=== PATIENT | female | born 1985 | race Two or more races ===

== ENCOUNTER 2024-12-17 08:35 | Emergency (ER) | payer MEDICAID, SELFPAY ==
[2024-12-17 08:36] VITALS: BMI 29.2
[2024-12-17 09:32] VITALS: BP 135/92; PULSE 57; RESP 16; TEMP 36.8; O2SAT 100
--- NOTE | 2024-12-17 09:44 | XR_ITS ---
Examination: Sacrum and coccyx 3 views TECHNIQUE: AP inclined AP lateral sacrum and coccyx 3 views Exam date and time: December 17, 2024 1020 hours INDICATIONS: Sacral pain 3 days. FINDINGS: Mild sacroiliitis Symmetrical sacral foramina Satisfactory alignment sacral and coccygeal segments, no fracture IMPRESSION: Mild sacroiliitis
--- NOTE | 2024-12-17 09:44 | XR_ITS ---
Examination: Lumbar spine 3 views Technique one AP lateral coned lateral lower lumbar spine 3 views Exam date and time: December 17, 2024 1026 hours INDICATIONS: Onset lower back pain beginning 3 days ago. FINDINGS: Adequate alignment lumbar vertebral bodies No lumbar fracture Moderate disc narrowing L5-S1 No spondylolisthesis IMPRESSION: Moderate disc narrowing L5-S1
--- NOTE | 2024-12-17 09:51 | EDNOTE_ITS ---
ED Back Injury Pain RME/HPI General Chief Complaint: Back Pain/Injury Stated Complaint: LOWER BACK PAIN S/P SCIATIC NERVE PAIN Time Seen by Provider: 12/17/24 08:51 Source: patient Arrival date/time: 12/17/24 08:35 Mode of arrival: ambulatory Limitations: no limitations RME / HPI RME / HPI Narrative: 39 year old female presents to the ED for complaint of lower lumbar back pain beginning 1 week ago and worsening in the last 3 days. Described as aching in sensation that radiates down to the right glute and leg. Has taken 800mg Ibuprofen at home with no relief. Mentioned she had experienced similar back pain 4 years ago and told it was due to sciatica, no issues with back since. Denies any new injuries, fevers, chills, or dysuria. No other associated symptom s or complaints reported. Related Data Previous Rx's ?Medication ?Instructions ?Recorded ibuprofen 600 mg tablet 600 mg PO TID PRN pain #20 t abs 05/13/18 cephalexin 750 mg capsule (Keflex) 750 mg PO BID #10 c aps 06/22/21 cyclobenzaprine 10 mg tablet 10 mg PO HS #14 tabs 12/01 03/26 prednisone 50 mg tablet 50 mg PO QDAY 5 days #5 tabs 12/17/24 Allergies Allergy/AdvReac Type Severity Reaction Status Date / Time No Known Allergies Allergy Verified 12/17/24 08:40 Review of Systems Review of Systems Systems Reviewed: All systems reviewed, normal except as documented Narrative Review of Systems: Gen: No fever, no chills, no weight loss EYES: No discharge, no visual changes, no pain HEENT: No ear pain, no congestion, no sore throat PULM: No shortness of breath, no cough, no congestion CV: No chest pain, no dyspnea on exertion, no palpitations GI: No nausea, no vomiting, no diarrhea, no pain, no constipation : No frequency, no urgency,? no dysuria Musc/skel: +back pain that radiates down rigth glute and leg Skin: No rash? Psyc: No hallucinations, no depression Heme/Lymph: No easy bleeding or bruising tendencies Neuro: No weakness, no headache Past Medical History Past Medical History CARDIAC: Negative Congestive Heart Failure RESPIRATORY: Negative Chronic Obstructive Pulmonary Disease (COPD) GENITOURINARY: Negative Renal Disease ENDOCRINE: Negative Diabetes Mellitus Type 1 or Diabetes Mellitus Type 2 Social History SMOKING STATUS: Never smoker ED Exam General Limitations: Present no limitations General appearance: Present alert and in no apparent distress Head Head exam: Present atraumatic, normocephalic and normal inspection Eye Eye exam: Present normal appearance, PERRL and EOMI ENT ENT exam: Present normal exam, normal oropharynx and mucous membranes moist Neck Neck exam: Present normal inspection, full ROM and trachea midline Chest Chest inspection: Present normal inspection and symmetric chest wall rise Respiratory Respiratory exam: Present normal lung sounds bilaterally Cardiovascular Cardiovascular exam: Present regular rate, normal rhythm and normal heart sounds Abdominal Exam Abdominal exam: Present soft and normal bowel sounds Extremities Exam Extremities exam: Present normal inspection and full ROM Back Exam Back exam: Present full ROM and other (lower lumbar mid back tenderness to palpation) Neurological Exam Neurological exam: Present alert, oriented X3 and CN II-XII intact Psychiatric Psychiatric exam: Present normal affect and normal mood Skin Skin exam: Present warm, dry, intact and normal color Course Quality Measures none Orders Category Date Time Status XR lumbar spine 2-3V Stat Exams 12/17/24 09:44 Completed XR sacrum coccyx min 2V Stat Exams 12/17/24 09:44 Completed HCG Qualitative,Urine Stat Lab 12/17/24 09:58 Completed Urinalysis Stat Lab 12/17/24 09:58 Completed CYCLObenzaPRINE [Flexeril] Med 12/17/24 09:44 Discontinued 5 mg PO X1 ONE HYDROcodone*/APAP 5/325 [[place] 5/325] Med 12/17/24 09:44 Discontinued 1 tab PO X1 ONE Ketorolac Inj [Toradol Inj] Med 12/17/24 12:46 Discontinued 60 mg IM X1 ONE Lidocaine 5% Patch Med 12/17/24 09:44 Discontinued 1 patch TOP X1 ONE Vital Signs Vital signs: Vital Signs Temperature 98.2 F 12/17/24 09:32 Pulse Rate 57 L 12/17/24 09:32 Respiratory Rate 16 12/17/24 09:32 Blood Pressure 135/92 H 12/17/24 09:32 Pulse Oximetry (%) 100 12/17/24 09:32 Oxygen Delivery Method Room Air 12/17/24 09:32 Pulse ox is 100% on room air which is adequate. Back Pain / Injury MDM Narrative MDM Narrative:: Lindsey Saleem am scribing for and in the presence of ART HISTORY PROFESSOR Vicki Muir. 39-year-old female presenting with lower lumbar back pain no reports of fever, chills rigors. No history of IV drug use. Vital signs stable. X-ray does demonstrate degenerative disease and sacroiliitis. Pain medication given in ER improving the patient's pain. Patient did report history of similar pain 4 years ago and never followed up with her PCP for further imaging. Strictly advised she will need to follow-up to continue her care for imaging even physical therapy. Patient agrees with plan. Strict ER precautions given Patient data External records reviewed:: [facility] previous records (I reviewed ED visit on 06/22/2021 ) Clinical information provided by:: patient Social determinants that could affect healthcare access:: none Patient has the following chronic illnesses:: Sciatic pain 4 years ago How is presenting disease/condition affected by chronic disease/condition?: exacerbated by Evaluation data The following diagnostics were reviewed and interpreted by me:: lab results and radiology exam(s) Lab and/or radiology exams considered but not ordered:: None Interpretation Summary: Ordering Physician: [facility] Butler Date of Service: 12/17/24 Procedure(s): XR lumbar spine 2-3V Accession Number(s): [id number] cc: Jonathan Rice MD; Perez Contreras MD; Isadora HartmannSI[facility]ITALVicki Butler~ Examination: Lumbar spine 3 views Technique one AP lateral coned lateral lower lumbar spine 3 views Exam date and time: December 17, 2024 1026 hours INDICATIONS: Onset lower back pain beginning 3 days ago. FINDINGS: Adequate alignment lumbar vertebral bodies No lumbar fracture Moderate disc narrowing L5-S1 No spondylolisthesis IMPRESSION: Moderate disc narrowing L5-S1 Dictated By: Perez Contreras MD Signed By: <Electronically signed by Perez Contreras MD in OV> 12/17/24 1120 ====== Ordering Physician: Isad[facility] HartmannSI[facility]ITAL[facility]icki Butler Date of Service: 12/17/24 Procedure(s): XR sacrum coccyx min 2V Accession Number(s): [id number] cc: Jonathan Rice MD; Perez Contreras MD; Isadora HartmannSI[facility]PITALVicki Butler~ Examination: Sacrum and coccyx 3 views TECHNIQUE: AP inclined AP lateral sacrum and coccyx 3 views Exam date and time: December 17, 2024 1020 hours INDICATIONS: Sacral pain 3 days. FINDINGS: Mild sacroiliitis Symmetrical sacral foramina Satisfactory alignment sacral and coccygeal segments, no fracture IMPRESSION: Mild sacroiliitis Dictated By: Perez Contreras MD Signed By: <Electronically signed by Perez Contreras MD in OV> 12/17/24 1120 Medications / Prescriptions Medications or Prescriptions considered but not ordered:: None Medication administrations:: Medication Administration History Discontinued Medications Hydrocodone Bitart/Acetaminophen (Hydrocodone/Apap 5/325 Tablet) 1 tab PO X1 ONE Stop: 12/17/24 09:45 Last Admin: 12/17/24 09:53 Dose: 1 tab Documented By: VG Cyclobenzaprine HCl (Cyclobenzaprine 5 Mg Tablet) 5 mg PO X1 ONE Stop: 12/17/24 09:45 Last Admin: 12/17/24 09:53 Dose: 5 mg Documented By: VG Ketorolac Tromethamine (Ketorolac Inj 60 Mg/2 Ml Vial) 60 mg IM X1 ONE Stop: 12/17/24 12:47 Last Admin: 12/17/24 13:21 Dose: 60 mg Documented By: OA Lidocaine (Lidocaine 5% 1 Patch) 1 patch TOP X1 ONE Stop: 12/17/24 09:45 Last Admin: 12/17/24 09:54 Dose: 1 patch Documented By: VG See above Consultations Consultation(s) initiated? (list below): No Diagnosis Differential diagnosis back pain/injury: lumbar radiculopathy, sciatica and strain of lumbar region Most likely diagnosis given after review of the tests above:: Sacrioliitis Admission Indicated Admission indicated?: not indicated Explain why admission is indicated or not indicated:: Does not meet admission criteria Admission Request Was there a request for admission?: No Disposition Plan Disposition Plan: Discharge Discharge Attestation Discharge Attestation: The patient and all family members were given an opportunity to ask questions and understood the discharge instructions. Discharge instructions specifically effects, indications for sooner follow up or return to the emergency department, and the expected course of current diagnosis. Patient condition: Stable Discharge Plan Plan Patient Disposition: HOME (Self Care) Patient condition on transfer: Stable Prescriptions/Referrals Prescriptions/Med Rec: New cyclobenzaprine 10 mg tablet 10 mg PO HS Qty: 14 0RF prednisone 50 mg tablet 50 mg PO QDAY 5 Days Qty: 5 0RF No Action cephalexin [Keflex] 750 mg capsule 750 mg PO BID Qty: 10 0RF ibuprofen 600 mg tablet 600 mg PO TID PRN (Reason: pain) Qty: 20 0RF Referrals: Jonathan Rice MD [Primary Care Provider] - In 1 week Problem List Clinical Impression: Sacroiliitis Patient/Caregiver Discharge Instructions Discharge Activity: activity as tolerated Education Materials: ED Sacroiliitis Additional Instructions: You were diagnosed with sacroiliitis, which is inflammation of the sacroiliac joint in the lower back where your spine meets your pelvis. At-Home Care: * Take ibuprofen or naproxen as directed to reduce pain and inflammation. * Use ice or heat on the lower back for 15?20 minutes as needed. * Avoid heavy lifting, bending, or activities that increase back pain. * Try gentle stretching or walking to stay mobile, but avoid overexertion. Follow-Up: * Follow up with your primary care provider in 1 week or sooner if symptoms worsen. * You may be referred to physical therapy if pain continues. Return to the ER if: * You develop fever, numbness, weakness, or severe worsening pain * You have trouble walking or controlling bowel/bladder Print Language: Israeli Stand Alone Forms: Christine Award Info., Patient Portal Info Letter SUSANA/PRASHANT Supervising Physician SUSANA/PRASHANT Supervising Physician: dr. Abbott
[2024-12-17] MEDS: CYCLObenzaPRINE 5 MG TABLET PO (09:53)
[2024-12-17] MEDS: HYDROcodone/APAP 5/325 TABLET 1 TAB PO (09:53)
[2024-12-17] MEDS: LIDOCAINE 5% 1 PATCH TOP (09:54)
[2024-12-17 10:08] LABS: Collection Type, Urine Clean Catch
[2024-12-17 10:14] LABS: HCG Qualitative,Urine Negative
[2024-12-17 10:16] LABS: Bilirubin,Urine Negative (Negative); Blood,Urine Negative (Negative); Clarity,Urine Clear (Clear/Hazy); Color,Urine Lt-Yellow (Lt Yel-Yel); Glucose, Urine Negative (Negative); Ketones,Urine Negative (Negative); Leukocyte Esterase,Urine Negative (Negative); Nitrite,Urine Negative (Negative); PH,Urine 5.5 (5.0-7.0); Protein,Urine Negative (Neg - Trace); RBC,Urine 1 /hpf (0-3); Specific Gravity,Urine 1.024 (1.001-1.035); Squamous Epithelial Cell,Urine 6 /hpf (0-5); Urobilinogen,Urine Negative mg/dL (0.0-1.0); WBC,Urine 1 /hpf (0-5)
[2024-12-17] MEDS: KETOROLAC INJ 60 MG/2 ML VIAL IM (13:21)
== END 2024-12-17 13:53 | disposition home or self-care (01) ==
PROVIDERS: Nurse Practitioner Primary Care; Emergency Provider Emergency Medicine; PCP Family Medicine
DX: M46.1 Sacroiliitis, not elsewhere classified (principal); M48.07 Spinal stenosis, lumbosacral region
CPT/HCPCS: 72100; 72220; 81001; 81025; 96372; 99283; J1885; J3490; A9270

== ENCOUNTER 2025-07-03 06:14 | Emergency (ER) | payer MEDICAID, SELFPAY ==
[2025-07-03 06:19] VITALS: BP 162/110; PULSE 70; RESP 17; TEMP 36.7; O2SAT 98
[2025-07-03 06:20] VITALS: BMI 28.3
--- NOTE | 2025-07-03 06:54 | PD.EDRME ---
Rapid Medical Screening Exam RME Arrival date/time: 07/03/25 06:14 This is a 40 year patient with complaints of nausea, abdominal pain, diarrhea, and feeling bloated. Patient reports symptoms have been going on for 2 days. Pt reports hx of gastris and prediabetes. I have greeted and performed a focused initial assessment of this patient. Initial appropriate labs ordered at this time. A comprehensive ED assessment and evaluation of the patient and analysis of all test and completion of medical decision making process will be conducted by additional ED provider. Chief Complaint: Abdominal Pain Time Seen by Provider: 07/03/25 06:20 Vital signs: Vital Signs Temperature 98.1 F 07/03/25 06:19 Pulse Rate 70 07/03/25 06:19 Respiratory Rate 17 07/03/25 06:19 Blood Pressure 162/110 H 07/03/25 06:19 Pulse Oximetry (%) 98 07/03/25 06:19 Oxygen Delivery Method Room Air 07/03/25 06:19 Exam: Alert oriented, breathing even and unlabored, diffuse abdominal pain, GCS 15 Clinical Impression: CBC, metabolic panel, lipase, UA ordered pending.
[2025-07-03 07:42] LABS: Collection Type, Urine Voided
[2025-07-03 07:54] LABS: Basophils # (Auto) 0.1 Thou/mm3 (0.0-0.2); Basophils % (Auto) 1 % (0-2.5); Eosinophils # (Auto) 0.2 Thou/mm3 (0.0-0.5); Eosinophils % (Auto) 2 % (0-10); Hematocrit 37.4 % (36.0-46.0); Hemoglobin 12.2 g/dL (12.0-16.0); Immature Granulocytes Auto 0.03 Thou/mm3 (0.00-0.00); Lymphocytes # (Auto) 2.1 Thou/mm3 (1.0-4.8); Lymphocytes % (Auto) 33 % (10-50); Mean Corpuscular HGB Conc 32.6 g/dl (31.0-37.0); Mean Corpuscular Hemoglobin 29.5 pg (25.0-35.0); Mean Corpuscular Volume 90 fL (80-100); Monocytes # (Auto) 0.4 Thou/mm3 (0.0-0.8); Monocytes % (Auto) 6 % (0-12); Neutrophils # (Auto) 3.6 Thou/mm3 (1.8-7.7); Neutrophils % (Auto) 57 % (37-80); Nucleated Red Blood Cell # 0.00 Thou/mm3 (0.00-0.00); Nucleated Red Blood Cell % 0 /100 WBC (0); Platelet Count 326 Thou/mm3 (140-440); RDW Standard Deviation 42.5 fL (36.4-46.3); Red Blood Count 4.14 Miln/mm3 (4.00-5.20); White Blood Count 6.4 Thou/mm3 (3.6-11.0)
[2025-07-03 08:30] LABS: Bilirubin,Urine Negative (Negative); Blood,Urine 3+ (Negative); Clarity,Urine Clear (Clear/Hazy); Color,Urine Lt-Yellow (Lt Yel-Yel); Culture Indicated,Urine Not Indicated; Glucose, Urine Negative (Negative); HCG Qualitative,Urine Negative; Ketones,Urine Negative (Negative); Leukocyte Esterase,Urine Negative (Negative); Nitrite,Urine Negative (Negative); PH,Urine 6.0 (5.0-7.0); Protein,Urine Negative (Neg - Trace); RBC,Urine 10 /hpf (0-3); Specific Gravity,Urine 1.019 (1.001-1.035); Squamous Epithelial Cell,Urine 8 /hpf (0-5); Urobilinogen,Urine Negative mg/dL (0.0-1.0); WBC,Urine 2 /hpf (0-5)
[2025-07-03 08:37] LABS: Alanine Aminotransferase 12 U/L (10-49); Albumin, Serum 4.5 gm/dL (3.5-5.0); Albumin/Globulin Ratio 1.9 (1.2-2.2); Alkaline Phosphatase 65 U/L (46-116); Anion Gap 8 (7-16); Aspartate Amino Transferase 26 U/L (0-34); BUN/Creatinine Ratio 12 Ratio (12-20); Bilirubin,Total 0.3 mg/dL (0.3-1.2); Blood Urea Nitrogen 7 mg/dL (9-23); Calcium 8.7 mg/dL (8.3-10.6); Calcium (Corrected) 8.7 mg/dL (8.5-10.1); Carbon Dioxide 25.2 mMol/L (20.0-31.0); Chloride 109 mMol/L (98-107); Creatinine (Component) 0.6 mg/dL (0.6-1.3); Estimated Creatinine Clearance 114.5 mL/min (>60); Globulin 2.4 gm/dL (2.3-3.5); Glucose 100 mg/dL (74-106); Lipase 30 U/L (12-53); Osmolality,Calculated 281 (275-295); Potassium 4.2 mMol/L (3.4-5.1); Sodium 142 mMol/L (136-145); Total Protein 6.9 gm/dL (5.7-8.2); eGFR > 60 See Note
[2025-07-03 10:06] VITALS: BP 134/88; PULSE 68; RESP 16; TEMP 36.7; O2SAT 97
--- NOTE | 2025-07-03 10:08 | PD.EDABDPN ---
ED Abdominal Pain RME/HPI General Chief Complaint: Abdominal Pain Stated complaint: ABD PAIN Time seen by provider: 07/03/25 06:20 Arrival date/time: 07/03/25 06:14 RME / HPI RME / HPI narrative: 07/03/25 06:14 This is a 40 year patient with complaints of nausea, abdominal pain, diarrhea, and feeling bloated. Patient reports symptoms have been going on for 2 days. Pt reports hx of gastris and prediabetes. I have greeted and performed a focused initial assessment of this patient. Initial appropriate labs ordered at this time. A comprehensive ED assessment and evaluation of the patient and analysis of all test and completion of medical decision making process will be conducted by additional ED provider. DR. GARCIA MAIN ED EVALUATION: 40-year-old female presents to the Emergency Department for abdominal pain and acid reflux ongoing for two weeks, associated with loose, watery stools with odor. She reports the stools are not frequent but are consistently loose when she has bowel movements. She reports cramping abdominal pain, acid reflux, and bloating. Denies fevers or chills. No vomiting. No dysuria. She is currently on her menstrual period. The patient has a known history of gastritis and is avoiding spicy foods. She also reports increased stress due to family issues. She was seen by her primary doctor two days ago, who referred her to the ED for further evaluation and testing. The patient also reports taking amoxicillin from [place] for 8 days for a stomach infection though no diagnostic studies were performed. She has also been drinking several herbal teas from [place], including Cuachalalate tea, Prodigiosa tea, and Arnica tea. Related Data Allergies Allergy/AdvReac Type Severity Reaction Status Date / Time No Known Allergies Allergy Verified 07/03/25 06:15 Review of Systems Review of Systems Systems Reviewed: All systems reviewed, normal except as documented Past Medical History Social History SMOKING STATUS: Never smoker SUBSTANCE USE: does not use ALCOHOL: Never ED Exam Narrative Physical exam: GENERAL APPEARANCE: alert and oriented x 4, well-developed, well-nourished, no acute distress VITALS: All vitals were reviewed and the pulse ox is 97% on room air, which is normal according to my interpretation. HEENT: Normocephalic, atraumatic; pupils equal, round, reactive to light; EOMI; mucous membranes pink, moist; oropharynx clear NECK: Supple LUNGS: CTABL; no wheezes, no rales, no rhonchi HEART: Regular rate, regular rhythm; normal S1, S2; no murmurs ABDOMEN: Bloated, soft; bowel sounds normal; no masses, no organomegaly, no hernia BACK: no CVA tenderness EXTREMITIES: atraumatic; no edema NEUROLOGIC: awake; alert and oriented x4; cranial nerves II-XII grossly intact; no focal sensory or motor deficits PSYCHIATRIC: appropriate mood and affect SKIN: warm, dry, normal color; no rashes Course Quality Measures none Orders Category Date Time Status CT Screening NOW Care 07/03/25 10:22 Completed Occult Blood,Stool (Nursing) NOW Care 07/03/25 10:[address] abdomen pelvis w con Stat Exams 07/03/25 10:22 Completed US pelvic complete Stat Exams 07/03/25 13:48 Completed US transvaginal Stat Exams 07/03/25 13:48 Completed CBC Stat Lab 07/03/25 07:47 Completed Comprehensive Metabolic Panel Stat Lab 07/03/25 07:47 Completed HCG Qualitative,Urine Stat Lab 07/03/25 06:59 Completed Lipase Stat Lab 07/03/25 07:47 Completed Urinalysis, C/S if Indicated Stat Lab 07/03/25 06:59 Completed c diff [Clostridium Difficile PCR] Stat Lab 07/03/25 Ordered HYDROcodone*/APAP 5/325 [[place] 5/325] Med 07/03/25 10:18 Discontinued 1 tab PO X1 ONE Vital Signs Vital signs: Vital Signs Temperature 98.1 F 07/03/25 06:19 Pulse Rate 70 07/03/25 06:19 Respiratory Rate 17 07/03/25 06:19 Blood Pressure 162/110 H 07/03/25 06:19 Pulse Oximetry (%) 98 07/03/25 06:19 Oxygen Delivery Method Room Air 07/03/25 06:19 Abdominal Pain MDM MDM Narrative MDM Narrative:: I, Rae Navarro am scribing for and in the presence of Dr. Garcia. Patient data External records reviewed:: [facility] previous records Clinical information provided by:: patient Social determinants that could affect healthcare access:: none Patient has the following chronic illnesses:: Denies any PMHx, surgeries, daily medications, or known allergies. How is presenting disease/condition affected by chronic disease/condition?: no chronic disease Evaluation data The following diagnostics were reviewed and interpreted by me:: lab results and radiology exam(s) Lab and/or radiology exams considered but not ordered:: none Interpretation Summary: Procedure(s): CT abdomen pelvis w con Accession Number(s): [id number] cc: Jonathan Rice MD; Perez Contreras MD; Jacy Garcia MD~ Examination: CT abdomen with intravenous contrast CT pelvis with intravenous contrast 2-D coronal reconstructions 2-D sagittal reconstructions Date and time of exam: July 03, 2025, 11:31 a.m. INDICATIONS: Generalized abdominal pain diarrhea and bloating beginning 2 weeks ago. CTDI: vol (mGy) 7.93 DLP: (mGycm) 391 Technique: Multiple axial sections of the abdomen and pelvis have been obtained. 64 slice high-resolution scanner used. 3 mm axial sections have been obtained, post intravenous injection 60 cc [id number] 2-D sagittal, coronal reconstructions obtained. Low dose protocols were performed. One or more of the following dose reduction techniques were used; automated exposure control, adjustment of the mA and/or KV according to patient size, use of iterative reconstruction technique. Findings: No visualized liver or splenic lesion Mild prominence of gastric mucosa No definite gallstones No pancreatic or adrenal mass No renal or ureteral calculi Aorta normal size Normal appendix No bowel obstruction Scattered colonic diverticulosis, no diverticulitis Anteverted uterus The lower uterine segment is mildly prominent No adnexal mass Bladder intact Small disc bulges L4-L5, L5-S1, moderate disc narrowing L5-S1 IMPRESSION: Mild prominence of gastric mucosa No renal or ureteral calculi, no hydronephrosis Normal appendix No bowel obstruction diverticulitis or free air. Mild prominence lower uterine segment, recommend pelvic sonography follow-up Dictated By: Perez Contreras MD Procedure(s): US transvaginal Accession Number(s): [id number] cc: Jonathan Rice MD; Perez Contreras MD; Jacy Garcia MD~ Examination: Transvaginal ultrasound of the pelvis, complete Technique: Transvaginal sonographic images pelvis performed using hearn scale imaging Exam date and time: July 03, 2025, 1444 hours INDICATIONS: Prominence lower uterine segment on CT examination of the pelvis today FINDINGS: Uterus 9.0 cm Multiple cervical cysts but no solid lower uterine segment or cervical mass Endometrial stripe 1.1 cm Right ovary 2.5 cm arterial flow small follicles Left ovary 2.7 cm arterial flow small follicles. IMPRESSION: No uterine mass is confirmed Dictated By: Perez Contreras MD Procedure(s): US pelvic complete Accession Number(s): [id number] cc: Jonathan Rice MD; Perez Contreras MD; Jacy Garcia MD~ Examination: Pelvic ultrasound, transabdominal, complete Technique: Transabdominal ultrasound of the pelvis performed using grayscale imaging Date and time of exam: July 03, 2025, 1402 hours INDICATIONS: Abdominal pelvic pain beginning 2 weeks ago FINDINGS: Uterus 9.9 cm endometrial stripe 1.3 cm No uterine mass or intrauterine gestation Right ovary 2.9 cm arterial flow small follicles Left ovary 2.7 cm arterial flow small follicles IMPRESSION: No uterine mass or intrauterine gestation No adnexal mass Dictated By: Perez Contreras MD Medications / Prescriptions Medications or Prescriptions considered but not ordered:: none Medication administrations:: Medication Administration History Discontinued Medications Hydrocodone Bitart/Acetaminophen (Hydrocodone/Apap 5/325 Tablet) 1 tab PO X1 ONE Stop: 07/03/25 10:19 Last Admin: 07/03/25 10:58 Dose: 1 tab Documented By: LORNA see above Consultations Consultation(s) initiated? (list below): No Diagnosis Differential diagnosis abdominal pain: other (Antibiotic-associated diarrhea, gastritis, and functional dyspepsia.) Most likely diagnosis given after review of the tests above:: Gastritis Abdominal pain Admission Indicated Admission indicated?: not indicated Admission Request Was there a request for admission?: No Disposition Plan Disposition Plan: Discharge Discharge Attestation Discharge Attestation: The patient and all family members were given an opportunity to ask questions and understood the discharge instructions. Discharge instructions specifically effects, indications for sooner follow up or return to the emergency department, and the expected course of current diagnosis. Patient condition: Stable Discharge Plan Plan Patient Disposition: HOME (Self Care) Prescriptions/Referrals Referrals: Jonathan Rice MD [Primary Care Provider, Family Practice] - In 1 week Problem List Clinical Impression: Gastritis, Abdominal pain Patient/Caregiver Discharge Instructions Education Materials: ED Abdominal Pain Unkn Cause Fem, ED Gastritis (Adult) Print Language: Nepali Stand Alone Forms: Christine Award Info., Patient Portal Info Letter
--- NOTE | 2025-07-03 10:22 | XR_ITS ---
Examination: CT abdomen with intravenous contrast CT pelvis with intravenous contrast 2-D coronal reconstructions 2-D sagittal reconstructions Date and time of exam: July 03, 2025, 11:31 a.m. INDICATIONS: Generalized abdominal pain diarrhea and bloating beginning 2 weeks ago. CTDI: vol (mGy) 7.93 DLP: (mGycm) 391 Technique: Multiple axial sections of the abdomen and pelvis have been obtained. 64 slice high-resolution scanner used. 3 mm axial sections have been obtained, post intravenous injection 60 cc [id number] 2-D sagittal, coronal reconstructions obtained. Low dose protocols were performed. One or more of the following dose reduction techniques were used; automated exposure control, adjustment of the mA and/or KV according to patient size, use of iterative reconstruction technique. Findings: No visualized liver or splenic lesion Mild prominence of gastric mucosa No definite gallstones No pancreatic or adrenal mass No renal or ureteral calculi Aorta normal size Normal appendix No bowel obstruction Scattered colonic diverticulosis, no diverticulitis Anteverted uterus The lower uterine segment is mildly prominent No adnexal mass Bladder intact Small disc bulges L4-L5, L5-S1, moderate disc narrowing L5-S1 IMPRESSION: Mild prominence of gastric mucosa No renal or ureteral calculi, no hydronephrosis Normal appendix No bowel obstruction diverticulitis or free air. Mild prominence lower uterine segment, recommend pelvic sonography follow-up
[2025-07-03] MEDS: HYDROcodone/APAP 5/325 TABLET 1 TAB PO (10:58)
--- NOTE | 2025-07-03 13:02 | PRELIM_ITS ---
CT scan of the abdomen and pelvis with intravenous contrast (axial sections with sagittal and coronal reformats) July 03, 2025 1131 hours Clinical History: diarrhea, bloating, abdo pain No prior study is available for comparison. Findings: The lung bases are clear. Fatty infiltration of the liver is noted. The gallbladder is contracted. The pancreas, spleen, kidneys and adrenals are unremarkable. No evidence of bowel obstruction. A moderate amount of fecal material is present in the colon. Mild fluid filled small bowel loops, nonspecific.There are multiple colonic diverticula without evidence of diverticulitis. The appendix is within normal limits (axial images 135/229). There are subcentimeter mesenteric and retroperitoneal lymph nodes. The urinary bladder is distended otherwise unremarkable. The uterus demonstrates a lobulated contour with heterogeneous enhancement. There are hyperdensities within the endometrial cavity of the uterus. Trace free fluid is seen in the pelvis. There is no free air. A calcific density is seen in the pelvis, likely representing a phlebolith. The osseous structures are unremarkable. Impression: No evidence of bowel obstruction, free air or abscess. Uterus demonstrates a lobulated contour with heterogeneous enhancement and hyperdensities within the endometrial cavity of the uterus. Recommend clinical correlation and further evaluation with ultrasound as indicated. Other findings as described above. Report Electronically Signed By: Bora Saucedo 07/03/2025 1:01:30 PM [EST]
--- NOTE | 2025-07-03 13:48 | XR_ITS ---
Examination: Pelvic ultrasound, transabdominal, complete Technique: Transabdominal ultrasound of the pelvis performed using grayscale imaging Date and time of exam: July 03, 2025, 1402 hours INDICATIONS: Abdominal pelvic pain beginning 2 weeks ago FINDINGS: Uterus 9.9 cm endometrial stripe 1.3 cm No uterine mass or intrauterine gestation Right ovary 2.9 cm arterial flow small follicles Left ovary 2.7 cm arterial flow small follicles IMPRESSION: No uterine mass or intrauterine gestation No adnexal mass
--- NOTE | 2025-07-03 13:48 | XR_ITS ---
Examination: Transvaginal ultrasound of the pelvis, complete Technique: Transvaginal sonographic images pelvis performed using hearn scale imaging Exam date and time: July 03, 2025, 1444 hours INDICATIONS: Prominence lower uterine segment on CT examination of the pelvis today FINDINGS: Uterus 9.0 cm Multiple cervical cysts but no solid lower uterine segment or cervical mass Endometrial stripe 1.1 cm Right ovary 2.5 cm arterial flow small follicles Left ovary 2.7 cm arterial flow small follicles. IMPRESSION: No uterine mass is confirmed
[2025-07-03 16:41] VITALS: BP 137/90; PULSE 62; RESP 16; O2SAT 100
== END 2025-07-03 16:42 | disposition home or self-care (01) ==
PROVIDERS: Nurse Practitioner Family; Emergency Provider Emergency Medicine; PCP Family Medicine
DX: K29.70 Gastritis, unspecified, without bleeding (principal); K21.9 Gastro-esophageal reflux disease without esophagitis
CPT/HCPCS: 36415; 74177; 76830; 76856; 80053; 81001; 81025; 83690; 85025; 87177; 87209; 87338; 87493; 99283; A4649; Q9967; A9270